=== PATIENT | female | born 1945 | race Caucasian/White ===

== ENCOUNTER → 2018-12-10 | Day surgery (SDC) | payer MEDICARE, BC ==
[~2018-12-10] MED LIST: Lactated Ringers 1,000 ML IV SCH; Propofol 200 MG/20 ML SDV IV ONE
[2018-12-10 10:08] VITALS: BP 127/51
--- NOTE | 2018-12-14 08:32 | OR ---
DATE OF OPERATION: 12/10/2018 PREOPERATIVE DIAGNOSIS: SCREENING COLONOSCOPY. POSTOPERATIVE DIAGNOSIS: SCREENING COLONOSCOPY. SURGEON: Edi New MD PROCEDURE: FULL-LENGTH COLONOSCOPY WITH SNARE POLYPECTOMY X3, FORCEPS POLYP REMOVAL X1. ANESTHESIA: MAC via [employer]. COMPLICATIONS: None. SPECIMEN: Four separate tubular adenomas. FINDINGS: 1. Full-length colonoscopy. 2. [id number] sigmoid diverticulosis. 3. Tubular adenomas x4. RECOMMENDATIONS: Followup colonoscopy in 3 years. INDICATIONS: The patient was in for routine exam and it has been over 10 years since her last colonoscopy where she did have apparently some polyps in the past. She was sent for a surveillance scope. DESCRIPTION OF PROCEDURE: The patient was prepped and draped, placed in a left lateral decubitus position. A lubricated Olympus colonoscope was inserted and easily advanced to the cecum. The patient was quite tortuous, although the scope advanced easy. She did not tolerate this well. She got bradycardic frequently, but we were able to get over into the cecal pouch and finish the scope without any problem. The bowel prep was fine. Just outside the cecal pouch in the immediate proximal ascending colon, the patient had a small flat tubular adenoma. We were able to remove it in its entirety with a forceps. The rest of the ascending and transverse colon were unremarkable. Throughout most of the left colon, the patient had scattered diverticula mild to moderate in some areas. Two separate tubular adenomas were found in the sigmoid colon, 1 in the proximal, 1 in the mid. Both were stalked and just around a 0.5 cm in size. Both were removed with a snare and suctioned into polyp traps #1 and #2 respectively. Another tubular adenoma also removed with a snare and suctioned into polyp trap #3 without complication. Retroflexion showed no perianal lesions. Air was suctioned, scope removed without complication. PAL/JAIMIE /[id number]
== END ==
LOC: CC.SDS 08:11
PROVIDERS: ATTEND Family Medicine
DX: Z12.11 Encounter for screening for malignant neoplasm of colon (principal); D12.0 Benign neoplasm of cecum; D12.5 Benign neoplasm of sigmoid colon; D12.8 Benign neoplasm of rectum; K57.30 Diverticulosis of large intestine without perforation or abscess without bleeding; K63.89 Other specified diseases of intestine; I48.91 Unspecified atrial fibrillation; E78.00 Pure hypercholesterolemia, unspecified; E03.9 Hypothyroidism, unspecified; F41.9 Anxiety disorder, unspecified; F32.9 Major depressive disorder, single episode, unspecified; G47.30 Sleep apnea, unspecified; M19.90 Unspecified osteoarthritis, unspecified site; M06.9 Rheumatoid arthritis, unspecified; Z88.0 Allergy status to penicillin; Z88.2 Allergy status to sulfonamides; Z87.891 Personal history of nicotine dependence; Z86.010 Personal history of colon polyps; Z79.01 Long term (current) use of anticoagulants; Z79.52 Long term (current) use of systemic steroids; Z79.899 Other long term (current) drug therapy
CPT/HCPCS: 36415; 45385; 85610; J2704; J7120

== ENCOUNTER → 2021-12-27 | Day surgery (SDC) | payer MEDICARE, BC ==
[~2021-12-27] MED LIST changes: +Glycopyrrolate 0.2 MG/ML 2 ML SDV ONE; +Ketamine 200 MG/20 ML MDV ONE; +Phenylephrine 1% 10 MG/ML SDV ONE; -Propofol 200 MG/20 ML SDV IV ONE; +Propofol 200 MG/20 ML SDV ONE; +fentaNYL 50 MCG/ML SDV ONE
[2021-12-27 12:53] VITALS: BP 107/58; PULSE 83
== END ==
LOC: CC.SDS 10:21
PROVIDERS: ATTEND Family Medicine
DX: Z12.11 Encounter for screening for malignant neoplasm of colon (principal); D12.5 Benign neoplasm of sigmoid colon; D12.3 Benign neoplasm of transverse colon; K62.1 Rectal polyp; K57.30 Diverticulosis of large intestine without perforation or abscess without bleeding; F41.9 Anxiety disorder, unspecified; F32.A Depression, unspecified; E78.00 Pure hypercholesterolemia, unspecified; E03.9 Hypothyroidism, unspecified; M06.9 Rheumatoid arthritis, unspecified; G47.30 Sleep apnea, unspecified; Z88.1 Allergy status to other antibiotic agents; Z86.010 Personal history of colon polyps; Z88.8 Allergy status to other drugs, medicaments and biological substances; Z88.2 Allergy status to sulfonamides; Z88.0 Allergy status to penicillin; Z79.899 Other long term (current) drug therapy; Z79.82 Long term (current) use of aspirin; Z79.890 Hormone replacement therapy; Z98.890 Other specified postprocedural states; Z87.891 Personal history of nicotine dependence
CPT/HCPCS: 00812; 45380; 45385; 88305; J2370; J2704; J3010; J3490; J7120